=== PATIENT | female | born 1995 | race Caucasian/White ===

== ENCOUNTER 2023-04-05 17:37 | Emergency (ER) | payer SELFPAY ==
[2023-04-05] MEDS ORDERED: Lidocaine 2% 20 ML MDV INFILT ONE (17:38)
[2023-04-05] MEDS: Diphtheria,Pertussis(Acell),Tetanus Vaccine 0.5 ML Syringe IM ONE (18:31)
== END 2023-04-05 18:46 | disposition home or self-care (01) ==
LOC: FB.ED 17:37
DX: S61.213A Laceration without foreign body of left middle finger without damage to nail, initial encounter (principal); Z23 Encounter for immunization; W26.8XXA Contact with other sharp object(s), not elsewhere classified, initial encounter
CPT/HCPCS: 12001; 90471; 90715; 99282-25